=== PATIENT | male | born 1945 | race Caucasian/White ===

== ENCOUNTER → 2020-11-08 | Outpatient (CLI) | payer BC | LOC: PLD 10:55 → LAB SHORT 10:55 | DX: D48.5 Neoplasm of uncertain behavior of skin (principal); L57.0 Actinic keratosis | CPT/HCPCS: 88305 ==

== ENCOUNTER → 2021-10-08 | Outpatient (CLI) | payer BC ==
[2021-10-08 16:44] LABS: PSA, %Free 19.4 %
== END ==
LOC: LAB SHORT 12:18
PROVIDERS: Family Medicine
DX: R97.20 Elevated prostate specific antigen [PSA] (principal)
CPT/HCPCS: 84153; 84154